=== PATIENT | male | born 2000 | race Caucasian/White ===

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

== ENCOUNTER 2021-03-28 18:05 | Emergency (ER) | payer OTHER, MEDICAID ==
[~2021-03-28] VITALS: Ht 182.9 cm; Wt 68.2 kg
[2021-03-28 18:06] VITALS: BP 148/82
--- OUTSIDE RECORDS SUMMARY | 2021-03-28 18:16 | CCD ---
Author Author [facility] Organization [facility] Address Unknown Phone Unavailable Support Name Relationship Address Phone LAW, (LEGAL GAURDIAN) TOMASZ Next Of Kin [address] [place] [address] ELAYNE PUCKETT Next Of [address] [address] [place] [address] CHEVY PUCKETT Next Of Kin [address] [place] [address] VICENTA FRANCISCO Next Of Kin [address] [place] [address] Next Of Kin Unknown Unavailable UGreg Next Of Kin Unknown Unavailable [place] [address] VICENTA PUCKETT Next Of Kin [address] [place] [address] Re-disclosure Warning The records that you are about to access may contain information from federally-assisted alcohol or drug abuse programs. If such information is present, then the following federally mandated warning applies: This information has been disclosed to you from records protected by federal confidentiality rules (42 CFR part 2). The federal rules prohibit you from making any further disclosure of this information unless further disclosure is expressly permitted by the written consent of the person to whom it pertains or as otherwise permitted by 42 CFR part 2. A general authorization for the release of medical or other information is NOT sufficient for this purpose. The Federal rules restrict any use of the information to criminally investigate or prosecute any alcohol or drug abuse patient.The records that you are about to access may contain highly sensitive health information, the redisclosure of which is protected by Article 27-F of the [facility] Public Health law. If you continue you may have access to information: Regarding HIV / AIDS; Provided by facilities licensed or operated by the [facility] Office of Mental Health; or Provided by the [facility] Office for People With Developmental Disabilities. If such information is present, then the following [facility] mandated warning applies: This information has been disclosed to you from confidential records which are protected by state law. State law prohibits you from making any further disclosure of this information without the specific written consent of the person to whom it pertains, or as otherwise permitted by law. Any unauthorized further disclosure in violation of state law may result in a fine or half-way sentence or both. A general authorization for the release of medical or other information is NOT sufficient authorization for further disc losure. Family History Family Member Name Family Member Gender Family Member Status Date o f Status Description Data Source(s) Unknown Female Problem [facility] ([facility] Medications Medication Brand Name Start Date Product Form Dose Route Admi nistrative Instructions Pharmacy Instructions Status Indications Reaction Description Data Source(s) 20 mg 12/02/2020 12:00:00 AM EDT tablet 7 TAKE ONE TABLET BY MOUTH EVERY DAY FOR 7DAYS TAKE ONE TABLET BY MOUTH EVERY DAY FOR 7DAYS SOLD: 12/03/2020 [facility] Cyclobenzaprine hydrochloride 10 MG Oral Tablet CYCLOBENZAPR INE HCL 12/02/2020 12:00:00 AM EDT tablet 14 TAKE ONE TABLET BY MOUTH TWICE A DAY FOR 7 DAYS TAKE ONE TABLET BY MOUTH TWICE A DAY FOR 7 DAYS SOLD: 12/03/2020 [facility] Insurance Providers Payer name Policy type / Coverage type Policy ID Covered libertarian ID Covered libertarian's relationship to leon Policy Leon Plan Information Health [facility] Commercial [id number] [employer] BC/BS Commercial [id number] Family Dependent Medicaid-Pcap Medicaid [id number] Family Dependent EXCELLUS H [id number] Child [id number] MEDICAID M [id number] Self [id number] POMCO U [id number] Child [id number] [facility] [id number] CHILD [id number] [facility] [id number] FA2 [id number] [facility] 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 [facility] 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 [id number] [facility] [id number] MO2 [id number] BCBS [place] [id number] FA2 [id number] [facility] [id number] FA2 [id number] P[place] [id number] MO2 [id number] [place] 306/806 [id number] SM2 [id number] [place] 306/806 [id number] SM2 [id number] [place] 306/806 [id number] MO2 [id number] MEDICAID M [id number] S [id number] POM[place] PPO O [id number] S [id number] [place] BCBS B [id number] C [id number] [place] Ppo Commercial [id number] Family Dependent BLUE CROSS -O/P [id number] 17 [id number] SELF PAY UNAVAILABLE SP UNAVAILA BLE [facility]BA [place] [id number] FA2 [id number] [place] [place] P [id number] C [id number] BLUE CROSS DAVIS PLAN [id number] SP [id number] MEDICAID [id number] S [id number] [facility] [id number] MO2 [id number] MEDICAID [id number] SP [id number] O UNAVAILABLE UNAVAILA BLE [employer] OUTPATIENT CLAIM [id number] FA2 [id number] BCBS [place] [id number] FA2 [id number] Problems, Conditions, and Diagnoses No Information Surgeries/Procedures No Information Results No Information Social History No Information
--- OUTSIDE RECORDS SUMMARY | 2021-03-28 20:37 | CCD ---
Author Author [facility] Organization [facility] Address Unknown Phone Unavailable Support Name Relationship Address Phone LAW, (LEGAL GAURDIAN) TOMASZ Next Of Kin [address] [place] [address] ELAYNE PUCKETT Next Of Kin [address] [facility] [address] [place] [address] CHEVY PUCKETT Next Of Kin [address] [place] [address] VICENTA FRANCISCO Next Of Kin [address] [place] [address] Next Of Kin Unknown Unavailable UGreg Next Of Kin Unknown Unavailable SEEMA PUCK[place] [address] VICENTA PUCKETT Next Of Kin [address] [place] [address] Re-disclosure Warning The records that you are [...] is protected by Article 27-F of the [facility] Public Health law. If you continue you may have access to information: Regarding HIV / AIDS; Provided by facilities licensed or operated by the [facility] Office of Mental Health; or Provided by the [facility] Office for People With Developmental Disabilities. If such information is present, then the following [facility] mandated warning applies: This information has [...] law may result in a fine or care home sentence or both. A general authorization for the release of medical or other information is NOT sufficient authorization for further disc losure. Family History Family Member Name Family Member Gender Family Member Status Date o f Status Description Data Source(s) Unknown Female Problem MEDENT ([facility]) Medications Medication Brand Name Start Date Product Form Dose Route Admi nistrative Instructions Pharmacy Instructions Status Indications Reaction Description Data Source(s) 20 mg 12/02/2020 12:00:00 AM EDT tablet 7 TAKE ONE TABLET BY MOUTH EVERY DAY FOR 7DAYS TAKE ONE TABLET BY MOUTH EVERY DAY FOR 7DAYS SOLD: 12/03/2020 [facility] Cyclobenzaprine hydrochloride 10 MG Oral Tablet CYCLOBENZAPR INE HCL 12/02/2020 12:00:00 AM EDT tablet 14 TAKE ONE TABLET BY MOUTH TWICE A DAY FOR 7 DAYS TAKE ONE TABLET BY MOUTH TWICE A DAY FOR 7 DAYS SOLD: 12/03/2020 [facility] Insurance Providers Payer name Policy type / Coverage type Policy ID Covered democrat ID Covered democrat's relationship to leon Policy Leon Plan Information Health [facility] Commercial [id number] [employer] BC/BS Commercial [id number] Family Dependent Medicaid-Pcap Medicaid [id number] Family Dependent EXCELLUS H [id number] Child [id number] MEDICAID M [id number] Self [id number] POM[place] U [id number] Child [id number] 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 [id number] [facility] [id number] MO2 [id number] BCBS [place] [id number] FA2 [id number] [facility] [id number] FA2 [id number] P[place] [id number] MO2 [id number] [place] 306/806 [id number] SM2 [id number] [place] 306/806 [id number] SM2 [id number] [place] 306/806 [id number] MO2 [id number] MEDICAID M [id number] S [id number] [place] PPO O [id number] S [id number] EXCE[place] BCBS B [id number] C [id number] [id number] [place] Ppo Commercial [id number] Family Dependent BLUE CROSS -O/P [id number] 17 [id number] SELF PAY UNAVAILABLE SP UNAVAILA BLE [facility] [place] [id number] FA2 [id number] PGBA [place] P [id number] C [id number] BLUE CROSS DAVIS PLAN [id number] SP [id number] MEDICAID [id number] S [id number] [facility] [id number] MO2 [id number] MEDICAID [id number] SP [id number] UNAVAILABLE UNAVAILA BLE [employer] OUTPATIENT CLAIM [id number] FA2 [id number] BCBS [place] CON [place] [id number] FA2 [id number] Problems, Conditions, and Diagnoses No Information Surgeries/Procedures No Information Results No Information Social History No Information
== END 2021-03-28 20:43 | disposition left against medical advice (07) ==
LOC: M ED 18:05
DX: Z53.21 Procedure and treatment not carried out due to patient leaving prior to being seen by health care provider (principal)

== ENCOUNTER 2021-05-07 10:47 | Emergency (ER) | payer OTHER, MEDICAID ==
[~2021-05-07] VITALS: Ht 182.9 cm; Wt 65.4 kg
[2021-05-07 10:48] VITALS: BP 139/71
[2021-05-07 11:35] LABS: BASO % 0.8 % (0.0-1.0); EOS # 0.1 10^3/uL (0.0-0.5); EOS % 1.6 % (0.0-3.0); HEMOGLOBIN 15.2 g/dl (13.5-17.5); LYMPH # 1.3 10^3/uL (1.5-5.0); LYMPH % 26.2 % (24.0-44.0); MEAN CORPUSCULAR HEMOGLOBIN 30.3 pg (27.0-33.0); MEAN CORPUSCULAR HGB CONC 33.8 g/dl (32.0-36.5); MEAN CORPUSCULAR VOLUME 89.8 fl (80.0-96.0); MONO # 0.3 10^3/uL (0.0-0.8); MONO % 6.9 % (2.0-8.0); NEUTROPHILS # 3.2 10^3/uL (1.5-8.5); NEUTROPHILS % 64.3 % (36.0-66.0); PLATELET COUNT, AUTOMATED 279 10^3/uL (150-450); RED BLOOD COUNT 5.01 10^6/uL (4.30-6.10); WHITE BLOOD COUNT 4.9 10^3/uL (4.0-10.0)
[2021-05-07 12:08] LABS: ALBUMIN 4.7 GM/DL (3.2-5.2); ALT/SGPT 18 U/L (12-78); BILIRUBIN,DIRECT 0.1 MG/DL (0.0-0.2); BILIRUBIN,TOTAL 0.4 MG/DL (0.2-1.0); BLOOD UREA NITROGEN 14 MG/DL (7-18); CALCIUM LEVEL 9.4 MG/DL (8.5-10.1); CARBON DIOXIDE LEVEL 28 MEQ/L (21-32); CHLORIDE LEVEL 109 MEQ/L (98-107); CREATININE FOR GFR 0.93 MG/DL (0.70-1.30); GLUCOSE, FASTING 99 MG/DL (70-100); LIPASE 74 U/L (73-393); POTASSIUM SERUM 4.4 MEQ/L (3.5-5.1); SODIUM LEVEL 141 MEQ/L (136-145); TOTAL PROTEIN 7.8 GM/DL (6.4-8.2)
== END 2021-05-07 14:18 | disposition left against medical advice (07) ==
LOC: M ED 10:47
DX: Z53.21 Procedure and treatment not carried out due to patient leaving prior to being seen by health care provider (principal)

== ENCOUNTER → 2021-11-05 | Outpatient (REF) | payer OTHER, MEDICAID ==
[2021-11-06 16:46] LABS: APPEARANCE, URINE TURBID (CLEAR); BACTERIA, URINE AUTO NEGATIVE (NEGATIVE); BILIRUBIN, URINE AUTO NEGATIVE (NEGATIVE); BLOOD, URINE BLOOD NEGATIVE (NEGATIVE); COLOR, URINE AMBER (YELLOW); GLUCOSE, URINE (UA) AUTO NEGATIVE (NEGATIVE); KETONE, URINE AUTO NEGATIVE (NEGATIVE); LEUKOCYTE ESTERASE, URINE AUTO NEGATIVE (NEGATIVE); NITRITE, URINE AUTO NEGATIVE (NEGATIVE); PROTEIN, URINE AUTO NEGATIVE (NEGATIVE); RBC, URINE AUTO 0 /HPF (0-3); SPECIFIC GRAVITY URINE AUTO 1.021 (1.002-1.035); SQUAMOUS EPITHELIAL CELL UR AU 0 /HPF (0-6); UROBILINOGEN, URINE AUTO 0.2 mg/dL (0.0-2.0); WBC, URINE AUTO 0 /HPF (0-3)
[2021-11-06 18:50] LABS: GC DNA AMPLIFICATION NEGATIVE (NEGATIVE)
== END ==
LOC: M SFHCLERA 15:51
PROVIDERS: ATTEND Student in an Organized Health Care Education/Training Program
DX: N41.9 Inflammatory disease of prostate, unspecified (principal)

== ENCOUNTER 2021-11-09 12:19 | Emergency (ER) | payer OTHER, MEDICAID ==
[2021-11-09] MEDS ORDERED: OMEP-173 PO (12:37)
[2021-11-09] MEDS ORDERED: LEVOTAB10 PO (12:37)
[2021-11-09 13:01] LABS: HEMATOCRIT 45.4 % (42.0-52.0); HEMOGLOBIN 15.6 g/dl (13.5-17.5); MEAN CORPUSCULAR HEMOGLOBIN 32.2 pg (27.0-33.0); MEAN CORPUSCULAR HGB CONC 34.4 g/dl (32.0-36.5); MEAN CORPUSCULAR VOLUME 93.8 fl (80.0-96.0); PLATELET COUNT, AUTOMATED 245 10^3/uL (150-450); RED BLOOD COUNT 4.84 10^6/uL (4.30-6.10); WHITE BLOOD COUNT 11.4 10^3/uL (4.0-10.0)
[2021-11-09 13:39] LABS: RSV AMPLIFICATION NEGATIVE (NEGATIVE)
[2021-11-09 13:45] LABS: ALBUMIN 3.8 GM/DL (3.2-5.2); ALT/SGPT 19 U/L (12-78); BILIRUBIN,DIRECT 0.4 MG/DL (0.0-0.2); BILIRUBIN,TOTAL 0.3 MG/DL (0.2-1.0); BLOOD UREA NITROGEN 14 MG/DL (7-18); CARBON DIOXIDE LEVEL 26 MEQ/L (21-32); CHLORIDE LEVEL 111 MEQ/L (98-107); CREATININE FOR GFR 1.08 MG/DL (0.70-1.30); ETHYL ALCOHOL (ETHANOL) < 0.003 % (0.000-0.010); GLUCOSE, FASTING 91 MG/DL (70-100); POTASSIUM SERUM 3.9 MEQ/L (3.5-5.1); SODIUM LEVEL 142 MEQ/L (136-145)
[2021-11-09 13:52] LABS: SALICYLATE LEVEL 4.8 MG/DL (5.0-30.0)
[2021-11-09 16:39] LABS: AMPHETAMINES LEVEL URINE NEGATIVE (NEGATIVE); BARBITURATES URINE NEGATIVE (NEGATIVE); BENZODIAZEPINES URINE NEGATIVE (NEGATIVE); CANNABINOIDS URINE POSITIVE (NEGATIVE); COCAINE METABOLITE URINE NEGATIVE (NEGATIVE); METHADONE URINE NEGATIVE (NEGATIVE); OPIATES URINE NEGATIVE (NEGATIVE); PHENCYCLIDINE URINE NEGATIVE (NEGATIVE)
[2021-11-09 17:04] LABS: ACETAMINOPHEN LEVEL < 2.0 UG/ML (0.0-30.0)
[2021-11-09] MEDS ORDERED: HOME MED LIST COMPLETE! XX SCH (18:15)
[2021-11-09] MEDS ORDERED: NICOTINE 21MG/24HR 1 EA TRANSDERMAL TD ONE (21:15)
[2021-11-09] MEDS ORDERED: diphenhydrAMINE 50MG CAP PO ONE (22:20)
[2021-11-10] MEDS ORDERED: NICOTINE 21MG/24HR 1 EA TRANSDERMAL TD ONE (12:45)
[2021-11-11 07:16] VITALS: BP 115/65
== END 2021-11-11 07:26 ==
LOC: M ED 12:19
DX: R45.851 Suicidal ideations (principal); M25.551 Pain in right hip; R29.6 Repeated falls; Z91.030 Bee allergy status; Z79.899 Other long term (current) drug therapy; F17.201 Nicotine dependence, unspecified, in remission